=== PATIENT | male | born 1980 | race Hispanic/Latino ===

== ENCOUNTER → 2025-04-14 | Outpatient (CLI) | payer OTHER ==
[2025-04-14 22:52] VITALS: PULSE 78; RESP 18
[2025-04-14 23:06] VITALS: PULSE 74; RESP 18
[2025-04-14 23:31] VITALS: PULSE 75; RESP 18
[2025-04-15] VITALS (11 sets, daily range): PULSE 60–85; RESP 20–28
== END | disposition home or self-care (01) ==
LOC: SLP 20:32
PROVIDERS: ATTEND Family Medicine
DX: G47.33 Obstructive sleep apnea (adult) (pediatric) (principal); R06.83 Snoring; I10 Essential (primary) hypertension; E11.9 Type 2 diabetes mellitus without complications; F41.8 Other specified anxiety disorders; E66.9 Obesity, unspecified; R35.0 Frequency of micturition; R45.1 Restlessness and agitation; Z68.42 Body mass index [BMI] 45.0-49.9, adult
CPT/HCPCS: 95810

== ENCOUNTER → 2025-05-01 | Outpatient (CLI) | payer OTHER, MEDICAID ==
[2025-05-01 22:04] VITALS: PULSE 88; RESP 20
[2025-05-01 22:30] VITALS: PULSE 84; RESP 20
[2025-05-01 23:00] VITALS: PULSE 78; RESP 32
[2025-05-01 23:30] VITALS: PULSE 88; RESP 16
[2025-05-02] VITALS (9 sets, daily range): PULSE 74–88; RESP 18–32
== END | disposition home or self-care (01) ==
LOC: SLP 20:37
PROVIDERS: ATTEND Family Medicine
DX: G47.33 Obstructive sleep apnea (adult) (pediatric) (principal); R06.83 Snoring
CPT/HCPCS: 95811